=== PATIENT | male | born 1980 | race Caucasian/White ===

== ENCOUNTER → 2022-11-06 10:04 | Outpatient (BNVA) | payer OTHER, SELFPAY | PROVIDERS: PCP Physician Assistant Medical; Visit Provider Nurse Practitioner Family | DX: Z13.89 Encounter for screening for other disorder (principal) ==

== ENCOUNTER 2023-01-29 14:50 | Outpatient (AMB) | payer OTHER, SELFPAY ==
[2023-01-29 15:05] VITALS: BP 122/86; PULSE 75; O2SAT 96; BMI 35.3
--- NOTE | 2023-01-29 15:05 | MHC.OFFVIS ---
Intake Vital Signs 01/29/23 15:05 Height 6 ft 2 in Weight 275 lb BMI 35.3 BP 122/86 Blood Pressure Location Rt brachial Position Sitting Pulse 75 Pulse Source Pulse Oximeter Pulse Oximetry (%) 96 Oxygen Delivery Method Room Air Intake Visit Reasons: 2m follow up Headache/Dizziness - LVM Intake Note: Pt presents as a 2 month f/u for Headaches and dizziness. Pt states I had one episode and I took the medicine she gave me and it seemed to work. Undercoat Sprayer Required: No Allergies azithromycin Allergy (Unknown, Verified 01/29/23 15:14) Unknown cortisone Allergy (Unknown, Verified 01/29/23 15:14) Unknown bees Allergy (Unknown, Uncoded 01/29/23 15:14) swelling Medication List - Last Reconciled 01/29/23 by KELLY Garrison amlodipine 10 mg PO DAILY atorvastatin 20 mg PO DAILY dulaglutide (Trulicity) mg subcut empagliflozin (Jardiance) 10 mg PO DAILY fluticasone propionate 50 mcg/actuation 2 sprays intranasal DAILY PRN losartan 100 mg PO DAILY meclizine (Dramamine (meclizine)) PO PRN metoprolol succinate ER 100 mg PO BID sumatriptan succinate 50 - 100 mg orally at onset of dizziness, may repeat in 2 hrs PRN; max 2 tabs per day or 4 tabs/week (may take with Ibuprofen/meclizine) 30 days HPI HPI Comments History of Present Illness Details 42-yr-old male presents for f/u visit. Pt denies any significant interval medical changes. Pt reports he has had an epiusode of dizziness, which responsed to sumatriptan. He tolerated sumatriptan w/o any noticable s/e's. He is compliant w/ his ASV device- 90 day compliance report (October-January): ASV EPAP 9 cmH2O Min PS 3 cmH2O Max PS 15 cmH2O Residual AHI 0.5/hr Compliance > 4 hrs 92% Average usage on days used: 7 hrs 22min He has not had cardiac testing as of yet. [facility] Medical History HTN (hypertension) Surgical History H/O surgical amputation of finger Family History Mother Hypertension Diabetes Thyroid cancer Father Myocardial infarction Maternal Grandmother Diabetes Maternal Grandfather Myocardial infarction Paternal Grandfather Myocardial infarction Social History (Updated 01/29/23 @ 15:15 by Manisha Mosqueda CMA) Alcohol intake: current Alcohol intake frequency: a few times a month Patient Tobacco Use Status: Former Tobacco user Quit Date: 10/24/2000 Review of Systems Const All systems reviewed & are unremarkable except as noted in HPI and below Physical Exam Vital Signs: Last Vital Signs Pulse 75 01/29/23 15:05 BP 122/86 01/29/23 15:05 Pulse Ox 96 01/29/23 15:05 Oxygen Delivery Method Room Air 01/29/23 15:05 BMI result Body Mass Index 35.3 Const General: cooperative and no acute distress Orientation/consciousness: patient oriented x3 HEENT Head: Yes normocephalic Resp Effort & Inspection: normal respiratory effort and able to speak in complete sentences Neuro General: patient oriented x3, gait normal and CN's II-XI intact bilaterally Cognition (Neuro): normal cognition Motor exam (neuro): 5/5 motor strength present throughout Psych Appearance: grossly normal Mental Status: mental status grossly normal Speech and movement: Normal speech and movement present Affect: normal affect Attitude: cooperative Thought process: Normal thought process present Thought content: Normal thought content present Insight: Good insight present (Psych) Judgement: Good judgement present (Psych) Assessment & Plan Assessment & Plan (1) Dizziness: Comment: ? vestibular migraine. 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 Nonspecific scattered T2/FLAIR periventricular and subcortical white matter hyperintensities. Pt advised to continue to optimize HTN and DM control. Stressed importance of engaging in regular physical, social, and cognitively engaging activities. I have again advised pt to undergo Sen carotid duplex US and echocardiogram to ensure no underlying cardiac etiology and to ensure EF > 55% as pt is using ASV tx. Monitor for return of headache. Continue ASV nightly > 4 hrs. Will request sleep study results. May use Sumatriptan sporadically prn. f/u in 3-4 months or sooner prn. Coding Level of Care Code Est Pt Level 4 (22072) Diagnoses Dizziness R42 Sleep apnea G47.30
== END 2023-01-29 15:44 | disposition home or self-care (01) ==
LOC: HO.HSMS 14:50
PROVIDERS: PCP Physician Assistant Medical; Visit Provider Nurse Practitioner Family
DX: R42 Dizziness and giddiness (principal); G47.30 Sleep apnea, unspecified
CPT/HCPCS: 99214

== ENCOUNTER → 2023-01-29 14:50 | Outpatient (BNVA) | payer OTHER, SELFPAY | PROVIDERS: PCP Physician Assistant Medical; Visit Provider Nurse Practitioner Family | DX: R42 Dizziness and giddiness (principal); I10 Essential (primary) hypertension; E78.5 Hyperlipidemia, unspecified; E11.9 Type 2 diabetes mellitus without complications ==

== ENCOUNTER 2023-02-05 15:28 | Outpatient (REF) | payer OTHER, SELFPAY ==
--- NOTE | ~2023-02-05 | US_ITS ---
EXAMINATION: US EXTRACRANIAL CAROTID DUPLEX, BILATERAL CLINICAL INFORMATION: Dizziness and giddiness. COMPARISON: None available. TECHNIQUE: Real-time ultrasound and Doppler techniques (integrating B-mode 2-D vascular images, Doppler spectral analysis and color-flow Doppler imaging) were utilized to interrogate the extracranial carotid arteries, the vertebral arteries and proximal subclavian arteries bilaterally. The degree of stenosis is determined by criteria similar to NASCET. FINDINGS: Right Side: 1. There is no atherosclerotic plaque seen in the bifurcation/proximal ICA region. 2. The common carotid artery PSV proximally is 97 cm/s and distally 93 cm/s. 3. The proximal internal carotid artery velocities are 67 cm/s systolic and 30 cm/s diastolic. 4. The proximal external carotid artery PSV is 125 cm/s. 5. The vertebral artery shows antegrade flow. 6. The subclavian artery waveforms are normal. Left Side: 1. There is no atherosclerotic plaque seen in the bifurcation/proximal ICA region. 2. The common carotid artery PSV proximally is 105 cm/s and distally 94 cm/s. 3. The proximal internal carotid artery velocities are 55 cm/s systolic and 24 cm/s diastolic. 4. The proximal external carotid artery PSV is 134 cm/s. 5. The vertebral artery shows antegrade flow. 6. The subclavian artery waveforms are normal. US/US carotid duplex BI IMPRESSION: 1. RIGHT: Normal right internal carotid artery without atherosclerotic plaque or hemodynamically significant stenosis. 2. LEFT: Normal left internal carotid artery without atherosclerotic plaque or hemodynamically significant stenosis.
== END 2023-02-05 15:29 | disposition home or self-care (01) ==
LOC: HO.US 15:28
PROVIDERS: PCP Physician Assistant Medical; Visit Provider Nurse Practitioner Family
DX: R42 Dizziness and giddiness (principal); I10 Essential (primary) hypertension; E11.9 Type 2 diabetes mellitus without complications
CPT/HCPCS: 93880

== ENCOUNTER → 2023-02-26 11:00 | Outpatient (REF) | payer OTHER, SELFPAY ==
--- NOTE | 2023-02-26 11:03 | CA_ITS ---
Transthoracic Echocardiogram Patient (Last, First, Middle): Cain Campos A Gender: Male Date of : 1980 Age: 42 Procedure Date: 02/26/2023 Procedure Type: Transthoracic Echocardiogram Location: OP Height: 187.96 cm Weight: 122.47 kg BSA: 2.47 m2 Heart Rate: bpm BP: 128 / 90 mmHg Gas System Operator: TO Referring MD: Jeannette MENDOZA Symptoms: R42 - Dizziness and giddiness Study Quality: Fair/Contrast ECG Rhythm: Sinus Conclusions: - The left ventricular systolic function is normal. The calculated ejection fraction is 69% by biplane method. - There is moderate septal asymmetric hypertrophy. - There is mild calcification of the aortic valve. - No obvious valvular pathology seen on this study. - There is mild dilatation of the ascending aorta measuring 4.10 cm. Findings Procedure Information Contrast agent, definity, is being given per protocol without apparent complications. Left Ventricle Normal left ventricular cavity size. The left ventricular systolic function is normal. The calculated ejection fraction is 69% by biplane method. There is no evidence of regional wall motion abnormalities. There is moderate septal asymmetric hypertrophy. Right Ventricle Normal right ventricular cavity size and systolic function. Atria Both atria are normal in size. Aortic Valve There is a normal trileaflet aortic valve. There is mild calcification of the aortic valve. There is no aortic valve stenosis. There is trace (trivial) aortic valve regurgitation. Mitral Valve There is mild anterior mitral leaflet thickening. There is trace mitral valve regurgitation. There is no mitral valve stenosis. Pulmonic Valve The pulmonic valve is likely normal. Tricuspid Valve Normal tricuspid valve structure. There is no tricuspid valve regurgitation. There is no evidence of pulmonary hypertension. Great Vessels There is mild dilatation of the ascending aorta measuring 4.10 cm. Venous The inferior vena cava is normal in size and collapses greater than 50% with inspiration. Pericardium/Pleural There is no evidence of pericardial effusion. Prior Study Comparison No prior study available for comparison. Recommendations, Care & Conclusions No obvious valvular pathology seen on this study. Measurements 2D Linear Measurements IVSd: 1.47 0.6-0.9/0.6-1.0 cm LVIDd: 5.14 3.9-5.3/4.2-5.9 cm LVIDd Index: 2.08 2.4-3.2/2.2-3.1 cm/m2 LVIDs: 3.31 2.0-3.6 cm LVPWd: 1.06 0.7-1.1 cm LA Diam: 3.90 2.7-3.8/3.0-4.0 cm LAIDs Index: 1.58 1.5-2.3 cm/m2 LV Mass: 328.04 67-162/88-224 g LV Mass Index: 132.81 43-95/49-115 g/m2 LVOT Diam: 2.10 3.0+(-)1.3 cm 2D Systolic Function EF 4C: 69.00 >55% EF 2C: 69.80 >55% EF BiP: 69.40 >55% Aortic Valve AoV Pk Hermilo: 1.99 AoV Mn Hermilo: 1.37 AoV VTI: 0.41 AoV Pk Grad: 16.00 Aov Mn Grad: 8.00 HENRIETTA Cont.VTI: 1.82 LVOT LVOT Pk Hermilo: 1.05 LVOT Mn Hermilo: 0.71 LVOT VTI: 0.22 LVOT Pk Grad: 4.00 LVOT Mn Grad: 2.00 LVOT Diam: 2.10 LVOT Area: 3.46 Right Ventricle TAPSE (mm): 27.50 TVS' Hermilo: 13.80 Tricuspid Valve RA Press: 3.00 Great Vessels Aorta Sinus of Valsalva: 3.49 2.0-3.[address] [place]: 2.74 1.7-3.4 cm Ao Asc: 4.10 2.1-3.4 cm Updated in Other Vendor System with Status of Final Austen Puente MD electronically signed on 02/28/2023 9:19:52 AM with status of Final
== END ==
LOC: HO.CARD 11:00
PROVIDERS: PCP Physician Assistant Medical; Visit Provider Nurse Practitioner Family
DX: R42 Dizziness and giddiness (principal); I10 Essential (primary) hypertension; E78.5 Hyperlipidemia, unspecified
CPT/HCPCS: 93306; Q9957

== ENCOUNTER → 2023-02-26 11:03 | Outpatient (BNV) | payer OTHER, SELFPAY | PROVIDERS: PCP Physician Assistant Medical; Visit Provider Internal Medicine | DX: I35.8 Other nonrheumatic aortic valve disorders (principal) | CPT/HCPCS: 93306 ==

== ENCOUNTER 2023-07-07 15:33 | Outpatient (AMB) | payer OTHER, SELFPAY ==
[2023-07-07 15:41] VITALS: BMI 35.9
--- NOTE | 2023-07-07 15:41 | A.OFFVIS_ITS ---
Intake Vital Signs 07/07/23 15:41 Height 6 ft 2 in Weight 280 lb BMI 35.9 Intake Visit Reasons: 5m follow up Headache/Dizziness-Confirmed Intake Note: Patient presents for 5 month follow up. Allergies azithromycin Allergy (Unknown, Verified 07/07/23 15:44) Unknown cortisone Allergy (Unknown, Verified 07/07/23 15:44) Unknown bees Allergy (Unknown, Uncoded 07/07/23 15:44) swelling HPI HPI Comments History of Present Illness Details 42-yr-old male presents for f/u visit. Pt denies any significant interval medical changes. Pt denies interval headache or dizziness. He is compliant w/ ASV. Missed only a few days d/t a self-limited cold. Sleeps well with use. Echocardiogram showed EF 69%. Pt states BP and blood sugars have been WNL. He is compliant w/ his ASV device- 30 day compliance report, 06/07/2023 - 1 09/06/2022: ASV EPAP 9 cmH2O Min PS 3 cmH2O Max PS 15 cmH2O Residual AHI 0.4/hr Compliance > 4 hrs 87%% Average usage on days used: 7 hours 4 minutes 02/26/23, Transthoracic Echocardiogram: Conclusions: - The left ventricular systolic function is normal. The calculated ejection fraction is 69% by biplane method. - There is moderate septal asymmetric hy pertrophy. - There is mild calcification of the aor tic valve. - No obvious valvular pathology seen on this study. - There is mild dilatation of the ascend ing aorta measuring 4.10 cm. PFSH Medical History HTN (hypertension) Surgical History H/O surgical amputation of finger Family History Mother Hypertension Diabetes Thyroid cancer Father Myocardial infarction Maternal Grandmother Diabetes Maternal Grandfather Myocardial infarction Paternal Grandfather Myocardial infarction Social History Alcohol intake: current Alcohol intake frequency: a few times a month Patient Tobacco Use Status: Former Tobacco user Quit Date: 10/24/2000 Review of Systems Const All systems reviewed & are unremarkable except as noted in HPI and below Physical Exam Vital Signs: BMI result Body Mass Index 35.9 Const General: cooperative and no acute distress Orientation/consciousness: patient oriented x3 HEENT Head: Yes normocephalic Resp Effort & Inspection: normal respiratory effort and able to speak in complete sentences Neuro General: patient oriented x3, gait normal and CN's II-XI intact bilaterally Cognition (Neuro): normal cognition Motor exam (neuro): 5/5 motor strength present throughout Psych Appearance: grossly normal Mental Status: mental status grossly normal Speech and movement: Normal speech and movement present Affect: normal affect Attitude: cooperative Thought process: Normal thought process present Thought content: Normal thought content present Insight: Good insight present (Psych) Judgement: Good judgement present (Psych) Assessment & Plan Assessment & Plan (1) Sleep apnea: Comment: on ASV- Echocardiogram (Feb 2023)- EF 69% Code(s): G47.30 - Sleep apnea, unspecified (2) HTN (hypertension): Code(s): I10 - Essential (primary) hypertension Plan Continue ASV nightly > 4 hrs, as pt is experiencing good clinical effect from use. Monitor for return of headache. May use Sumatriptan sporadically prn. ? f/u in 12 months or sooner prn. Coding Level of Care Code Est Pt Level 3 (44761) Diagnoses Sleep apnea G47.30 HTN (hypertension) I10
== END 2023-07-07 16:17 | disposition home or self-care (01) ==
PROVIDERS: PCP Physician Assistant Medical; Visit Provider Nurse Practitioner Family
DX: G47.30 Sleep apnea, unspecified (principal); I10 Essential (primary) hypertension
CPT/HCPCS: 99213

== ENCOUNTER → 2023-07-07 15:33 | Outpatient (BNVA) | payer OTHER, SELFPAY | PROVIDERS: PCP Physician Assistant Medical; Visit Provider Nurse Practitioner Family | DX: R42 Dizziness and giddiness (principal); I10 Essential (primary) hypertension; E78.5 Hyperlipidemia, unspecified; E11.9 Type 2 diabetes mellitus without complications ==

== ENCOUNTER 2024-07-10 15:46 | Outpatient (AMB) | payer OTHER, SELFPAY ==
--- NOTE | 2024-07-10 15:36 | MHC.OFFVIS ---
Vital Signs 07/10/24 15:38 Height 6 ft 2 in Weight 270 lb BMI 34.7 Intake Visit Reasons: 1 yr f/u -Headaches Intake Note: Patient presents for a 1 yr telehealth appointment for headache. Union Organiser Required: No Accompanied by: Self / Same As Patient Allergies azithromycin Allergy (Unknown, Verified 07/10/24 15:38) Unknown cortisone Allergy (Unknown, Verified 07/10/24 15:38) Unknown bees Allergy (Unknown, Uncoded 07/07/23 15:44) swelling Medication List - Last Reconciled 07/10/24 by KELLY Garrison amlodipine 10 mg PO DAILY atorvastatin 20 mg PO DAILY empagliflozin (Jardiance) 10 mg PO DAILY fluticasone propionate 50 mcg/actuation 2 sprays intranasal DAILY PRN losartan 100 mg PO DAILY meclizine (Dramamine (meclizine)) PO PRN metoprolol succinate ER 100 mg PO BID semaglutide (Ozempic) mg subcut sumatriptan succinate 50 - 100 mg orally at onset of dizziness, may repeat in 2 hrs PRN; max 2 tabs per day or 4 tabs/week (may take with Ibuprofen/meclizine) 30 days HPI Comments Details: 43-yr-old male presents for f/u visit of ANI and headache/dizziness. Pt reports he had a [facility] ER evaluation in March 2024, for an isolated episode of angina. He had an echocardiogram, results of which he believes were reassuring. He is scheduled for a follow-up stress test. He has not had any recurrence of angina sinse. Pt denies interval headache or dizziness. He has made some lifestyle modifications which he feels has helped, such as changing his work schedule, managing stress. He is compliant w/ ASV. Sleeps well with use. 2022 Echocardiogram showed EF 69%. [employer] [facility] management Compliance Report 06/10/2024 - 07/09/2024 Usage days 30/30 days (100%) >= 4 hours 30 days (100%) < 4 hours 0 days (0%) Average usage (days used) 7 hours 22 minutes [employer] 10 ASV Serial number [id number] Mode ASV EPAP 9 cmH2O Min PS 3 cmH2O Max PS 15 cmH2O Therapy Leaks - L/min Median: 2.1 95th percentile: 12.8 Maximum: 27.6 Events per hour AI: 0.2 HI: 0.4 AHI: 0.6 Previous: 02/26/23, Transthoracic Echocardiogram: Conclusions: - The left ventricular systolic function is normal. The calculated ejection fraction is 69% by biplane method. - There is moderate septal asymmetric hypertrophy. - There is mild calcification of the aortic valve. - No obvious valvular pathology seen on this study. - There is mild dilatation of the ascending aorta measuring 4.10 cm. PFSH Medical History HTN (hypertension) Surgical History H/O surgical amputation of finger Family History Mother Hypertension Diabetes Thyroid cancer Father Myocardial infarction Maternal Grandmother Diabetes Maternal Grandfather Myocardial infarction Paternal Grandfather Myocardial infarction Social History Alcohol intake: current Alcohol intake frequency: a few times a month Patient Tobacco Use Status: Former Tobacco user Physical Exam Vital Signs: BMI result Body Mass Index 34.7 Const General: cooperative and no acute distress Orientation/consciousness: patient oriented x3 Resp Effort & Inspection: normal respiratory effort and able to speak in complete sentences Neuro General: patient oriented x3 Cognition (Neuro): normal cognition Psych Appearance: grossly normal Mental Status: mental status grossly normal Speech and movement: Normal speech and movement present Affect: normal affect Attitude: cooperative Telehealth Telehealth Telehealth Platform: [facility] Location of provider rendering services: practice address Location of patient: address on file Patient Identification confirmed using: Name, : Yes Telehealth method: video Patient verbally consented to treatment: Yes Patient verbally consented to billing insurance company: Yes Patient informed of any privacy concerns related to visit: Yes Minutes spent on Phone/Video with Pt.: 6 Assessment & Plan Assessment & Plan (1) Sleep apnea: Comment: on ASV- Echocardiogram (Feb 2023)- EF 69% Code(s): G47.30 - Sleep apnea, unspecified Category: Medical (2) HTN (hypertension): Code(s): I10 - Essential (primary) hypertension Category: Medical Plan Sleep apnea: Continue ASV EPAP 9 cmH2O Min PS 3 cmH2O Max PS 15 cmH2O- nightly > 4 hrs, as pt is experiencing good clinical effect from use. Will request updated echocardiogram report from [facility] ER in 04/14/2024. Continue to use distilled water in water chamber. Continue to clean and change PAP supplies routinely. Or episodes of headache and dizziness: May use Sumatriptan sporadically prn. Monitor clinically. Future considerations: Trial of gepant if echocardiogram or stress test results are concerning for CAD. ? f/u in 12 months or sooner prn. Medications: Refilled sumatriptan succinate (0.5 - 1 x 100 mg) 50 - 100 mg orally at onset of dizziness, may repeat in 2 hrs PRN; max 2 tabs per day or 4 tabs/week (may take with Ibuprofen/meclizine) 30 days 12 tabs 6RF migraine headache Coding Level of Care Code Tele Est Pt Level 4 (51054) Diagnoses Sleep apnea G47.30 HTN (hypertension) I10
[2024-07-10 15:38] VITALS: BMI 34.7
== END 2024-07-10 16:00 ==
PROVIDERS: PCP Physician Assistant Medical; Visit Provider Nurse Practitioner Family
DX: G47.30 Sleep apnea, unspecified (principal); I10 Essential (primary) hypertension
CPT/HCPCS: 99214